=== PATIENT | female | born 1930 | race African-American/Black ===

== ENCOUNTER 2017-09-27 11:37 | Inpatient (IN) ==
[2017-09-27] MEDS ORDERED: SODIUM CHLORIDE 0.9% 500 ML IV STA (11:56)
[2017-09-27] MEDS ORDERED: LEVOFLOXACIN INJ 750 MG in PREMIX 1 EACH IV STA (11:56)
[2017-09-27] MEDS ORDERED: methylPREDNISolone SOD SUC 125 MG/2 ML VIAL IV STA (11:56)
[2017-09-27] MEDS ORDERED: ALBUTEROL 2.5 MG/3 ML NEB RESP TX SCH (12:00)
[2017-09-27] MEDS ORDERED: methylPREDNISolone SOD SUC 125 MG/2 ML VIAL ONE (12:17)
[2017-09-27] MEDS ORDERED: LEVOFLOXACIN INJ 150 ML IV ONE (12:17)
[2017-09-27 12:49] LABS: Basophils # 0.1 10*3/uL (0.0-0.2); Basophils % 0.5 % (0.0-0.8); Eosinophils # 1.1 10*3/uL (0.0-0.87); Eosinophils % 7.3 % (0.00-10.9); Hematocrit 36.3 VOL% (35.7-47.0); Hemoglobin 11.9 GM/DL (12.0-16.0); Immature Granulocytes % 0.6 %; Immature Granulocytes Absolute 0.09 #; Lymphocytes # 2.1 10*3/uL (1.4-4.0); Lymphocytes % 13.9 % (21.3-54.2); Mean Corpuscular HGB Conc 32.8 GM/DL (32-36); Mean Corpuscular Hemoglobin 30 PG (27-34); Mean Corpuscular Volume 92.1 FL (87-102); Mean Platelet Volume 13.2 FL (9.6-12.0); Monocytes # 0.6 10*3/uL (0.11-0.8); Monocytes % 3.9 % (1.7-12.7); NRBC # 0.18 10*3/uL; Neutrophils # 11.2 10*3/uL (1.4-7.4); Neutrophils % 73.8 % (38.7-73.9); Platelet Count 190 T/CUMM (130-400); Red Blood Count 3.94 MC/CUMM (3.8-5.5); Red Cell Distribution Width 16.8 % (9.3-17.3); White Blood Count 15.2 T/CUMM (4-12)
[2017-09-27 13:13] LABS: INR 1.1; PT Patient Result 11.7 SECS; Partial Thromboplastin Time 30.9 SECS (0-40)
[2017-09-27 13:20] LABS: Alanine Aminotransferase 28 U/L (13-56); Albumin 2.8 G/DL (3.4-5.0); Alkaline Phosphatase 94 U/L (45-117); Aspartate Amino Transferase 25 U/L (0-37); Blood Urea Nitrogen 39 MG/DL (7-18); Glucose 142 MG/DL (74-106); Osmolality,Calculated 319.2 MOS/KG (273-304); Potassium 4.2 MMOL/L (3.5-5.1); Sodium 156 MMOL/L (136-145); Total Protein 7.4 G/DL (6.4-8.3); Troponin I Only < 0.015 NG/ML (0.00-0.045)
[2017-09-27 13:55] LABS: Apearance,Urine Slightly Hazy (Clear); Bacteria,Urine Occasional /HPF (Few); Bilirubin,Urine Negative (Negative); Blood, Urine Negative (Negative); Glucose,Urine (UA) Negative (Negative); Hyaline Casts,Urine 11 /LPF (0-3); Ketones,Urine Negative (Negative); Mucus,Urine Occasional /LPF (Occasional); Nitrite,Urine Negative (Negative); Protein,Urine 30 MG/DL; RBC,Urine 1 /HPF (0-4); Squamous Epithelial Cell,Urine Occasional /HPF (0-10); Urine Color Amber (Yellow); Urine Specific Gravity 1.025 (1.001-1.035); WBC,Urine 1 /HPF (0-6)
[2017-09-27] MEDS ORDERED: ONDANSETRON 4 MG/2 ML VIAL IV PRN (17:34)
[2017-09-27] MEDS ORDERED: ACETAMINOPHEN 325 MG TABLET PO PRN (17:34)
[2017-09-27] MEDS ORDERED: MORPHINE 2 MG/1 ML SYRINGE IV PRN (17:34)
[2017-09-27] MEDS ORDERED: SODIUM CHLORIDE 0.9% 1,000 ML IV SCH (17:34)
[2017-09-27] MEDS: MEROPENEM 500 MG in SYRINGE 1 EACH IV SCH (17:49)
[2017-09-27] MEDS ORDERED: DEXTROSE 5% 1,000 ML IV ONE (19:00)
[2017-09-27] MEDS: ALBUTEROL/IPRATROPIUM 3 ML NEB RESP TX SCH (19:30)
[2017-09-27] MEDS: MEMANTINE 10 MG TABLET PO SCH (21:19)
[2017-09-27] MEDS: ENOXAPARIN 30 MG/0.3 ML SYRINGE SUBCUT SCH (21:19)
[2017-09-28] MEDS: ALBUTEROL/IPRATROPIUM 3 ML NEB RESP TX SCH ×4 (01:32→20:44)
[2017-09-28 05:19] LABS: Basophils % 0.1 % (0.0-0.8); Hematocrit 32.1 VOL% (35.7-47.0); Hemoglobin 10.5 GM/DL (12.0-16.0); Immature Granulocytes % 0.6 %; Immature Granulocytes Absolute 0.12 #; Lymphocytes % 5.4 % (21.3-54.2); Mean Corpuscular HGB Conc 32.7 GM/DL (32-36); Mean Corpuscular Hemoglobin 30 PG (27-34); Mean Corpuscular Volume 90.9 FL (87-102); Mean Platelet Volume 13.5 FL (9.6-12.0); Monocytes # 0.5 10*3/uL (0.11-0.8); Monocytes % 2.5 % (1.7-12.7); NRBC # 0.16 10*3/uL; Neutrophils # 17.1 10*3/uL (1.4-7.4); Neutrophils % 91.4 % (38.7-73.9); Platelet Count 167 T/CUMM (130-400); Red Blood Count 3.53 MC/CUMM (3.8-5.5); Red Cell Distribution Width 16.9 % (9.3-17.3); White Blood Count 18.7 T/CUMM (4-12)
[2017-09-28 05:43] LABS: Band Neutrophils 2 % (0-10); Lymphocytes 6 % (20-55); Nucleated Red Blood Cells 2 (0-5); Segmented Neutrophils 91 % (50-85)
[2017-09-28 05:45] LABS: Hypochromasia 1+; Platelet Estimate Normal; Target Cells 1+; Total Cells Counted 100
[2017-09-28 05:47] LABS: Calcium 9.7 MG/DL (8.5-10.1); Magnesium 2.4 MG/DL (1.8-2.4); Osmolality,Calculated 320.2 MOS/KG (273-304); Potassium 3.9 MMOL/L (3.5-5.1)
[2017-09-28] MEDS: MEROPENEM 500 MG in SYRINGE 1 EACH IV SCH ×2 (06:05→17:45)
[2017-09-28] MEDS ORDERED: PANTOPRAZOLE 40 MG TABLET PO SCH (09:00)
[2017-09-28] MEDS: methylPREDNISolone SOD SUC 40 MG/1 ML VIAL IV SCH ×2 (09:01→20:37)
[2017-09-28] MEDS ORDERED: STERILE WATER IV SCH (15:00)
[2017-09-28] MEDS ORDERED: DEXTROSE IV SCH (15:00)
[2017-09-28] MEDS: ENOXAPARIN 30 MG/0.3 ML SYRINGE SUBCUT SCH (20:49)
[2017-09-29] MEDS: ALBUTEROL/IPRATROPIUM 3 ML NEB RESP TX SCH ×4 (02:01→18:50)
[2017-09-29] MEDS: MEROPENEM 500 MG in SYRINGE 1 EACH IV SCH ×2 (05:27→18:41)
[2017-09-29] MEDS ORDERED: STERILE WATER IV SCH (08:00)
[2017-09-29] MEDS ORDERED: DEXTROSE IV SCH (08:00)
[2017-09-29] MEDS: methylPREDNISolone SOD SUC 40 MG/1 ML VIAL IV SCH ×2 (09:08→21:19)
[2017-09-29] MEDS: PANTOPRAZOLE 40 MG VIAL IV SCH (09:09)
[2017-09-29] MEDS ORDERED: ZINC OXIDE PASTE 113 GM TUBE TOP PRN (15:56)
[2017-09-29] MEDS ORDERED: DEXTROSE 5% NACL 0.22% 1,000 ML IV SCH (17:30)
[2017-09-29] MEDS: ENOXAPARIN 40 MG/0.4 ML SYRINGE SUBCUT SCH (21:21)
[2017-09-29] MEDS: MEMANTINE 10 MG TABLET PO SCH (21:29)
[2017-09-30] MEDS: ALBUTEROL/IPRATROPIUM 3 ML NEB RESP TX SCH ×4 (01:20→18:50)
[2017-09-30 05:31] LABS: Basophils % 0.1 % (0.0-0.8); Hematocrit 31.2 VOL% (35.7-47.0); Hemoglobin 10.1 GM/DL (12.0-16.0); Immature Granulocytes % 1.9 %; Immature Granulocytes Absolute 0.36 #; Lymphocytes # 0.8 10*3/uL (1.4-4.0); Lymphocytes % 4.4 % (21.3-54.2); Mean Corpuscular HGB Conc 32.4 GM/DL (32-36); Mean Corpuscular Hemoglobin 29 PG (27-34); Mean Platelet Volume 13.8 FL (9.6-12.0); Monocytes # 0.4 10*3/uL (0.11-0.8); Monocytes % 2.1 % (1.7-12.7); NRBC # 0.22 10*3/uL; Neutrophils # 17.3 10*3/uL (1.4-7.4); Neutrophils % 91.5 % (38.7-73.9); Platelet Count 179 T/CUMM (130-400); Red Blood Count 3.43 MC/CUMM (3.8-5.5); Red Cell Distribution Width 16.4 % (9.3-17.3); White Blood Count 18.9 T/CUMM (4-12)
[2017-09-30 05:51] LABS: Calcium 9.4 MG/DL (8.5-10.1); Osmolality,Calculated 309.9 MOS/KG (273-304); Potassium 3.8 MMOL/L (3.5-5.1)
[2017-09-30 06:10] LABS: Giant Platelets Few; Hypochromasia 1+; Lymphocytes 7 % (20-55); Ovalocytes Slight; Platelet Estimate Normal; Segmented Neutrophils 88 % (50-85); Total Cells Counted 100
[2017-09-30] MEDS: MEROPENEM 500 MG in SYRINGE 1 EACH IV SCH (07:16)
[2017-09-30] MEDS: methylPREDNISolone SOD SUC 40 MG/1 ML VIAL IV SCH (08:24)
[2017-09-30] MEDS: PANTOPRAZOLE 40 MG VIAL IV SCH (08:24)
[2017-09-30] MEDS: MEMANTINE 10 MG TABLET PO SCH (20:48)
[2017-09-30] MEDS: ENOXAPARIN 40 MG/0.4 ML SYRINGE SUBCUT SCH (20:54)
[2017-10-01 07:20] LABS: Basophils % 0.2 % (0.0-0.8); Eosinophils # 0.1 10*3/uL (0.0-0.87); Eosinophils % 0.3 % (0.00-10.9); Hematocrit 29.8 VOL% (35.7-47.0); Hemoglobin 9.6 GM/DL (12.0-16.0); Immature Granulocytes % 3.6 %; Immature Granulocytes Absolute 0.59 #; Lymphocytes # 2.2 10*3/uL (1.4-4.0); Lymphocytes % 13.2 % (21.3-54.2); Mean Corpuscular HGB Conc 32.2 GM/DL (32-36); Mean Corpuscular Hemoglobin 29 PG (27-34); Mean Corpuscular Volume 90.9 FL (87-102); Mean Platelet Volume 14.1 FL (9.6-12.0); Monocytes # 0.9 10*3/uL (0.11-0.8); Monocytes % 5.4 % (1.7-12.7); NRBC # 0.22 10*3/uL; Neutrophils # 12.6 10*3/uL (1.4-7.4); Neutrophils % 77.3 % (38.7-73.9); Platelet Count 161 T/CUMM (130-400); Red Blood Count 3.28 MC/CUMM (3.8-5.5); Red Cell Distribution Width 16.5 % (9.3-17.3); White Blood Count 16.3 T/CUMM (4-12)
[2017-10-01] MEDS: ALBUTEROL/IPRATROPIUM 3 ML NEB RESP TX SCH ×2 (07:37)
[2017-10-01 07:47] LABS: Band Neutrophils 1 % (0-10); Giant Platelets Few; Hypochromasia 1+; Lymphocytes 12 % (20-55); Nucleated Red Blood Cells 2 (0-5); Ovalocytes Slight; Platelet Estimate Normal; Segmented Neutrophils 81 % (50-85); Total Cells Counted 100
[2017-10-01 07:52] LABS: Calcium 8.9 MG/DL (8.5-10.1); Osmolality,Calculated 305.7 MOS/KG (273-304); Potassium 3.7 MMOL/L (3.5-5.1)
[2017-10-01] MEDS ORDERED: methylPREDNISolone SOD SUC 40 MG/1 ML VIAL IV SCH (09:00)
[2017-10-01] MEDS ORDERED: levETIRAcetam LIQUID 100 MG/ML 30 ML/BOTTLE PO SCH (09:00)
[2017-10-01] MEDS ORDERED: LANSOPRAZOLE ODT 30 MG TABLET PO SCH (09:00)
[2017-10-01 11:40] VITALS: BP 160/68
== END 2017-10-01 15:22 | disposition home health service (06) | DRG 191 ==
LOC: N.ED 11:37 → SUATTDRO 14:18 → N.EDINP 14:18 → N.2E 17:23
PROVIDERS: ADMIT Internal Medicine; ATTEND Internal Medicine